=== PATIENT | female | born 1975 | race Asian ===

== ENCOUNTER 2023-10-05 11:10 | Emergency (ER) | payer OTHER, MEDICAID ==
[~2023-10-05] VITALS: Wt 23.1 kg
[2023-10-05 12:01] LABS: HEMATOCRIT 42.1 % (37.0-47.0); MEAN CELL VOLUME 92.9 fl (81.0-99.0); MEAN CORPUSCULAR HGB 30.7 pg (27.0-31.0); MEAN PLATELET VOLUME 8.8 fl (9.6-12.3); PLATELET COUNT AUTOMATED 239 10*3/uL (130-400); RED BLOOD COUNT 4.53 10*6/uL (4.10-5.10); RED CELL DISTRI WIDTH 11.8 % (0-14.5); WHITE BLOOD COUNT 14.4 10*3/uL (4.8-10.8)
[2023-10-05 12:02] LABS: MANUAL DIFF REFLEX YES
[2023-10-05 12:09] LABS: BILIRUBIN 1+ (Negative); BLOOD Trace-Intact (Negative); CLARITY Cloudy (Clear); COLOR Dark Yellow (Yellow); GLUCOSE Negative (Negative); KETONE 1+ (Negative); LEUKO ESTERASE Trace (Negative); NITRITE Negative (Negative); SPECIFIC GRAVITY >= 1.030 (1.001-1.030)
[2023-10-05 12:19] LABS: ALKALINE PHOSPHATASE 91 U/L (46-116); BUN 9 mg/dl (9-23); CHLORIDE 103 mmol/L (98-107); LIPASE 25 U/L (12-53); POTASSIUM 3.1 mmol/L (3.4-5.1); SGPT/ALT 17 U/L (5-49); TOTAL PROTEIN 7.1 gm/dL (6.0-8.0)
[2023-10-05 12:19] LABS: MUCOUS 1+
[2023-10-05 12:20] LABS: BACTERIA 2+; RBC 0-2 rbc/hpf (0-2)
[2023-10-05 12:20] LABS: PLATELET SUFFICIENCY NORMAL (NORMAL); POLYCHROMASIA SLIGHT; TOTAL CELLS COUNTED 100 #CELLS; VACUOLATION OF NEUTROPHILS SLIGHT
[2023-10-05] MEDS ORDERED: IOHEXOL 300 MG/ML 100 ML VIAL IV ONE (12:55)
[2023-10-05] MEDS ORDERED: ACETAMINOPHEN 325 MG TAB PO ONE (16:55)
[2023-10-05] MEDS ORDERED: IBUPROFEN 400 MG TAB PO ONE (16:55)
[2023-10-05] MEDS ORDERED: Piperacillin Sodium/Tazobact 50 ML IV ONE (20:10)
[2023-10-05] MEDS ORDERED: SODIUM CHLORIDE 0.9% 1,000 ML IV ONE ×2 (20:15→21:50)
[2023-10-06] MEDS ORDERED: Piperacillin Sodium/Tazobact 50 ML IV ONE ×2 (02:40→09:00)
[2023-10-06] MEDS ORDERED: Ondansetron Hydrochloride 4 MG/2 ML VIAL IV ONE (06:25)
[2023-10-06] MEDS ORDERED: HYDROmorphONE Hydrochloride 0.5 MG/0.5 ML SYRINGE IV ONE (06:25)
[2023-10-06] MEDS ORDERED: POTASSIUM CHLORIDE 20 MEQ TAB PO ONE (07:40)
[2023-10-06] MEDS ORDERED: ACETAMINOPHEN 325 MG TAB PO ONE (11:15)
== END 2023-10-06 12:04 | disposition short-term general hospital (02) ==
LOC: ED 11:10
PROVIDERS: Emergency Medicine
DX: N70.91 Salpingitis, unspecified (principal); A41.9 Sepsis, unspecified organism